=== PATIENT | female | born 1940 | race Caucasian/White ===

== ENCOUNTER 2020-12-01 22:16 | Emergency (ER) | payer MEDICARE ==
[2020-12-01 22:49] LABS: BASOPHIL 0.4 % (0-2); HCT 46.3 % (37.0-47.0); LYMPHOCYTE 27.3 % (15-48); MCH 31.1 pg (25.0-31.0); MCHC 32.4 g/dL (32.0-36.0); MCV 96.1 fL (78.0-100.0); MONOCYTE 11.6 % (0-12); MPV 10.3 fL (6.0-9.5); NEUTROPHIL 57.5 % (41-80); NRBC 0; PLT 232 K/uL (150-400); RBC 4.82 M/uL (4.20-5.40); RDW 13.2 % (11.5-14.0); WBC 8.4 K/uL (4.0-10.5)
[2020-12-01 23:02] LABS: ALBUMIN 3.5 g/dL (3.4-5.0); BILIRUBIN - TOTAL 0.5 mg/dL (0.2-1.0); CREATININE 0.77 mg/dL (0.51-0.95); GLOBULIN (CALCULATION) 3.8 g/dL; POTASSIUM 4.1 mmol/L (3.5-5.1); TOTAL PROTEIN 7.3 g/dL (6.4-8.2)
[2020-12-01 23:11] LABS: PRO-BNP 342 pg/mL (<450)
[2020-12-02] MEDS ORDERED: PREDNISONE 20MG20 MG PO (01:49)
== END 2020-12-02 02:00 | disposition home or self-care (01) ==
LOC: FER 22:16
PROVIDERS: Emergency Medicine
DX: J44.1 Chronic obstructive pulmonary disease with (acute) exacerbation (principal); R07.9 Chest pain, unspecified; I48.91 Unspecified atrial fibrillation; I50.9 Heart failure, unspecified; Z86.73 Personal history of transient ischemic attack (TIA), and cerebral infarction without residual deficits; Z20.822 Contact with and (suspected) exposure to COVID-19; Z91.048 Other nonmedicinal substance allergy status; Z79.899 Other long term (current) drug therapy
CPT/HCPCS: 36415; 71045; 80053; 83605; 83880; 84145; 84484; 85025; 87040; 93005; 94640; 94664; 94760; J2930; U0002